=== PATIENT | male | born 1975 | race Caucasian/White ===

== ENCOUNTER 2018-04-24 12:59 | Inpatient (IN) | payer BC ==
[~2018-04-24] VITALS: Ht 182.9 cm; Wt 72.6 kg
[2018-04-24] MEDS ORDERED: MEPERIDINE HCL (25 MG/ML) 1ML VIAL IV ONE ×2 (14:45→22:30)
[2018-04-24] MEDS ORDERED: PROMETHAZINE HCL 25 MG/ML 1ML IV ONE (14:45)
[2018-04-24] MEDS ORDERED: SODIUM CHLORIDE 0.9% 1,000 ML IV ONE (15:45)
[2018-04-24] MEDS ORDERED: GASTROGRAFIN 120 ML SOL ONE (17:17)
[2018-04-24 22:02] LABS: Basophils # (auto) 0 uL; Basophils % (auto) 0.3 % (0.0-2.0); Eosinophils # (auto) 0.1 uL; Eosinophils % (auto) 1.6 % (0.0-7.0); Hematocrit 43.7 % (41.0-53.0); Hemoglobin 14.6 g/dL (13.5-17.5); Lymphocytes # (auto) 1.3 uL; Lymphocytes % (auto) 17.1 % (10.0-50.0); Mean Corpuscular Hemoglobin 30.4 pg (28.0-32.0); Mean Corpuscular Hgb Conc. 33.5 g/dL (32.0-36.0); Mean Corpuscular Volume 90.8 fL (80.0-100.0); Monocytes # (auto) 0.3 uL; Monocytes % (auto) 4.2 % (0.0-12.0); Neutrophils # (auto) 5.8 uL; Neutrophils % (auto) 76.8 % (37.0-80.0); Platelet Count (auto) 139 10^3/uL (140-450); Red Blood Cells 4.81 10^6/uL (4.5-5.90); Red Cell Distribution Width 13.1 % (11.8-14.3); White Blood Cell 7.6 10^3/uL (4.4-10.8)
[2018-04-24 22:19] LABS: Alanine Aminotransferase 28 U/L (16-61); Albumin 3.8 g/dL (3.4-5.0); Amylase 47 U/L (25-115); Anion Gap 7 (5-15); Aspartate Aminotransferase 19 U/L (15-37); BUN/Creatinine Ratio 16.8; Blood Urea Nitrogen 16 mg/dL (7-18); Calcium 8.8 mg/dL (8.5-10.1); Carbon Dioxide 25 mmol/L (21-32); Chloride 113 mmol/L (98-107); GFR African American 112 mL/min; GFR Non-African American 93 mL/min; Glucose 83 mg/dL (74-106); Lipase 120 U/L (73-393); Potassium 4.4 mmol/L (3.5-5.1); Sodium 145 mmol/L (136-145)
[2018-04-24 22:22] LABS: Alkaline Phosphatase 55 U/L (45-117); Bilirubin, Total 0.7 mg/dL (0.2-1.0); Total Protein 7.5 g/dL (6.4-8.2)
[2018-04-24] MEDS ORDERED: ONDANSETRON HCL 4 MG/2 ML VIAL IV ONE (22:30)
[2018-04-25] VITALS (7 sets, daily range): BP systolic 91–118; BP diastolic 46–72
[2018-04-25] MEDS ORDERED: CYCLOBENZAPRINE HCL 10 MG TAB PO PRN (01:30)
[2018-04-25] MEDS ORDERED: TEMAZEPAM 15 MG CAP PO PRN (01:30)
[2018-04-25] MEDS ORDERED: ACETAMINOPHEN 325 MG TAB PO PRN (01:30)
[2018-04-25] MEDS ORDERED: ONDANSETRON HCL 4 MG/2 ML VIAL IV PRN (01:30)
[2018-04-25] MEDS ORDERED: HYDROcodone-ACET 5/325MG TAB PO PRN (01:30)
[2018-04-25] MEDS: NALBUPHINE HCL 10 MG/1ml INJECTION IV PRN ×3 (03:15→15:49)
[2018-04-25] MEDS: ENOXAPARIN SOD 40 MG/0.4 ML SYRINGE SC SCH ×2 (09:16→09:18)
[2018-04-25 09:34] LABS: Urine Bacteria NONE SEEN /hpf (None Seen); Urine Blood Negative /uL (Negative); Urine Mucus FEW (None Seen); Urine Specific Gravity 1.026 (1.001-1.035); Urine WBC 1 /hpf (0 - 3)
[2018-04-25] MEDS ORDERED: FAMOTIDINE 20 MG TAB PO SCH (10:00)
== END 2018-04-25 19:00 | disposition home or self-care (01) | DRG 389 ==
LOC: ER 12:59 → WEST WING 13:00
PROVIDERS: ADMIT Nurse Practitioner; ATTEND Internal Medicine
DX: K56.1 Intussusception (principal); I42.0 Dilated cardiomyopathy; F41.9 Anxiety disorder, unspecified; G89.29 Other chronic pain; M51.36 Other intervertebral disc degeneration, lumbar region; Z82.49 Family history of ischemic heart disease and other diseases of the circulatory system
CPT/HCPCS: 36415; 72131; 74250; 80053; 81001; 82150; 83605; 83690; 83880; 85025; 96361; 96374; 96375; 96376; J2405